=== PATIENT | male | born 1970 | race Caucasian/White ===

== ENCOUNTER 2018-08-29 17:28 | Emergency (ER) | payer SELFPAY ==
[2018-08-29 17:29] VITALS: BP 135/83; PULSE 68; RESP 18; TEMP 36.9; O2SAT 98; BMI 30.8
--- NOTE | 2018-08-29 17:54 | EKG12_ITS ---
Test Reason : HEAD INJURY Blood Pressure : / mmHG Vent. Rate : 056 BPM Atrial Rate : 056 BPM P-R Int : 176 ms QRS Dur : 092 ms QT Int : 384 ms P-R-T Axes : 031 -13 029 degrees QTc Int : 370 ms Sinus bradycardia Otherwise normal ECG Confirmed by SALAZAR CAMARENA, MOHSEN ([id number]), mapping editor STACEY QUESADA ([id number]) on 09/01/2018 2:12:34 PM Referred By: Confirmed By:MOHSEN LINCOLN MD
--- NOTE | 2018-08-29 17:54 | CT_ITS ---
STUDY: CT BRAIN WITHOUT CONTRAST REASON FOR EXAM: Male, 47 years old. Trauma RADIATION DOSAGE (If Supplied By Facility): CTDIvol = ( 44.99 ) mGy, DLP = ( 779.24 ) mGycm TECHNIQUE: Transaxial CT imaging of the brain was performed without administration of intravenous contrast material. Individualized dose optimization techniques were used for this CT. COMPARISON: No relevant priors. FINDINGS: Small scalp hematoma over the right posterior skull. Normal calvarium. Normal size ventricles and extra-axial spaces for the patient's age. Normal white matter tracts of the cerebral hemispheres. Normal basal ganglia and thalami. Normal brainstem. Normal cerebellum. There is no intracranial hemorrhage. There are no findings of an acute ischemic infarction. Normal visualized paranasal sinuses. CT/Brain/Head without Contrast IMPRESSION: Normal unenhanced CT scan of the brain. Electronically Signed: Mansoor Jeter MD at 18:29 EDT , Service support ,
--- NOTE | 2018-08-29 17:54 | CT_ITS ---
STUDY: CT FACIAL BONES WITHOUT CONTRAST REASON FOR EXAM: Male, 47 years old. Trauma RADIATION DOSAGE (If Supplied By Facility): CTDIvol = ( 29.38 ) mGy, DLP = ( 510.73 ) mGycm TECHNIQUE: The patient was scanned in a multi detector CT scanner. Sagittal and coronal images were reconstructed. Individualized dose optimization techniques were used for this CT. COMPARISON: None. FINDINGS: Normal soft tissue structures. Normal orbital martinez and orbital contents. Normal nasal bones and anterior nasal spine. Normal facial bones. There is no demonstrated fracture. No mandibular fracture seen. Mucous retention cyst in the left maxillary sinus otherwise negative visualized paranasal sinuses. CT/Sinus/Facial Bone IMPRESSION: Normal unenhanced CT of the facial bones. Electronically Signed: Mansoor Jeter MD at 18:31 EDT , Service support ,
--- NOTE | 2018-08-29 18:11 | ED.VISSUMM ---
- ER Visit Summary Date of Service: 08/29/18 Chief Complaint: Head injury History of Present Illness: The patient is a 47 M who is his usual state of health today and working outside in the garage. He was bent over cutting and walking backwards. He reported that his buttocks hit the wall and he lunged forward stood up quickly and possibly lost consciousness and fell striking his right hip and the back of his head. He notes bilateral angle of mandible jaw pain. States he otherwise has a slight headache he notes swelling in the occiput. No pain in the right hip. He has a history of hypertension and takes lisinopril. No chest complaints. Physical Examination: Afebrile vital signs are stable Gen: Well-nourished well-developed Head: Normocephalic there is an occipital hematoma Eyes: Perrl EOMI ENT: TMs clear no rhinorrhea moist mucous membranes patient is tender palpation at the angle of the mandible bilaterally. There is no malocclusion. No dental injuries. Neck: Supple no lymphadenopathy no JVD nontender CVS: Regular rate rhythm no murmurs normal S1-S2 Respiratory: No distress clear to auscultation bilaterally chest nontender Abdomen: Soft nontender nondistended normal bowel sounds no masses Back: Nontender Extremity: Nontender no edema Skin: Normal color no rash Neuro: alert orientated ?3 CN II-XII intact normal strength sensation Psych: Normal affect normal mood Test Results: EKG showed a sinus rhythm at a rate of 50 is no ectopy. No concerning features of ACS. CBC and a BMP showed a glucose of 129 creatinine 1.16. Troponin is negative. CT the brain and facial bones demonstrated no fracture or intracranial hemorrhage. Emergency Department Course and Treatment: Patient will be discharged home with supportive care. Recommend ice for the contusion and hematoma. Oral hydration return if worsening or concerns Impression: 1. Syncope 2. Closed head injury 3. Scalp hematoma 4. Jaw contusion This note was generated with [employer] dictation software. It may contain incorrect words, spelling, and punctuation that were not noted in review of the chart prior to signing ED Disposition - Plan for ED Patient: Disposition: Home or Assisted Living Instructions: HEAD INJURY, No Wake-Up (Adult), SYNCOPE, Unk Cause Additional Instructions: Follow-up with primary care return if worsening or concerns
[2018-08-29 18:18] LABS: Absolute Lymphocyte Count 2.48 X10^3/ul (0.83-4.51); Absolute Neutrophil Count 3.3 X10^3/uL (2.0-7.7); Basophil# 0.05 X10^3/uL; Basophil% 0.7 % (0-1); Eosinophil# 0.25 X10^3/uL; Eosinophils% 3.7 % (0-5); Hematocrit 41.8 % (40-54); Hemoglobin 14.5 g/dl (13.0-16.5); Lymphocyte # 2.48 X10^3/ul (4.0); Lymphocyte % 36.6 % (19-41); Mean Corp Hgb Conc 34.7 g/gl (32-36); Mean Corpuscular Hgb 29.7 pg (27.0-32.0); Mean Corpuscular Volume 85.5 fL (80-94); Mean Platelet Vol. 11.1 fl (6.2-12.0); Monocyte# 0.71 X10^3/uL; Monocyte% 10.5 % (0-10); Neutrophil # 3.27 X10^3/uL (2.7-7.7); Neutrophil % 48.4 % (47-70); Platelet Count 189 K/mm3 (150-450); RBC Distribution Width CV 12.6 % (11.6-14.6); RBC Distribution Width SD 38.7 fl (35.1-43.9); Red Blood Count 4.89 M/mm3 (4.6-6.2); White Blood Count 6.8 K/mm3 (4.4-11.0)
[2018-08-29 18:19] LABS: POSITIVE COUNT NO; POSITIVE DIFFERENTIAL NO; POSITIVE MORPHOLOGY NO
[2018-08-29 18:31] LABS: Anion Gap 6 (5-15); BUN 24 mg/dL (7-18); BUN/Creat Ratio 20.7 RATIO (10-20); Calcium,Total 8.8 mg/dL (8.5-10.1); Chloride 104 mmol/L (98-107); Creatinine, Serum 1.16 mg/dL (0.70-1.30); EST Glomerular Filtration Rate 71 mL/min (>60); Est Glom Filt Rate - Afr Amer 86 mL/min (>60); Estimated Creatinine Clearance 77.03 ml/min; Glucose 129 mg/dL (74-106); Potassium 3.7 mmol/L (3.5-5.1); Sodium Level 136 mmol/L (136-145)
[2018-08-29 18:56] VITALS: BP 117/77; PULSE 60; RESP 18; O2SAT 96
== END 2018-08-29 19:03 | disposition home or self-care (01) ==
LOC: ED 19:05
PROVIDERS: Emergency Provider Emergency Medicine
DX: R55 Syncope and collapse (principal); S00.03XA Contusion of scalp, initial encounter; S00.83XA Contusion of other part of head, initial encounter; W19.XXXA Unspecified fall, initial encounter; Y93.9 Activity, unspecified; Y92.9 Unspecified place or not applicable; I10 Essential (primary) hypertension; Z79.899 Other long term (current) drug therapy
CPT/HCPCS: 70450; 70486; 80048; 84484; 85025; 93005; 99283; A4216